=== PATIENT | male | born 1990 | race Caucasian/White ===

== ENCOUNTER 2017-10-02 04:22 | Emergency (ER) | payer OTHER ==
[2017-10-02 04:29] VITALS: BP 122/60
--- NOTE | 2017-10-02 07:48 | ER Document Report ---
HPI - HPI Pain Level: 2 Notes: This patient was not seen by this provider. Upon entry to the room patient has no medical complaint. Patient has a stack of [employer] paperwork from another state that he is requesting to be filled out. Patient reports he had an injury 2 weeks ago in which he sprained his left wrist. Patient reports that the wrist has no pain currently. Patient reports that he has been traveling for work and needs to have the workman's comp papers completed. I informed him that we do not complete Workmen's Comp. forms however if he has any type of acute injury or complaint we would be happy to evaluate him for that. Patient reports no complaint and states that he will call his human resources people and get in touch with the appropriate medical provider involved in his care to complete his Workmen's Comp. forms. Charge nurse Carla Bundy made aware of situation. - MUSCULOSKELETAL Musculoskeletal: REPORTS: Extremity pain - WRIST RECHECK Past Medical History - Social History Smoking Status: Unknown if Ever Smoked Frequency of alcohol use: None Family History: Reviewed & Not Pertinent Patient has suicidal ideation: No Patient has homicidal ideation: No Renal/ Medical History: Denies: Hx Peritoneal Dialysis Psychiatric Medical History: Reports: Hx Attention Deficit Hyperactivity Disorder Past Surgical History: Reports: Hx Appendectomy - Immunizations Hx Diphtheria, Pertussis, Tetanus Vaccination: Yes Vertical Provider Document - INFECTION CONTROL TRAVEL OUTSIDE OF THE [place] IN LAST 30 DAYS: No Course - Vital Signs Vital signs: Temp Pulse Resp BP Pulse Ox 98.9 F 87 15 122/60 98 10/02/17 04:27 10/02/17 04:27 10/02/17 04:27 10/02/17 04:27 10/02/17 04:27
== END 2017-10-02 07:00 | disposition home or self-care (01) ==
LOC: ER 04:22
DX: S63.502D Unspecified sprain of left wrist, subsequent encounter (principal); X58.XXXD Exposure to other specified factors, subsequent encounter
CPT/HCPCS: 99283